=== PATIENT | female | born 1970 | race African-American/Black ===

== ENCOUNTER 2019-04-08 10:02 | Emergency (ER) | payer BC ==
[~2019-04-08] VITALS: Ht 165.1 cm; Wt 63.5 kg
[2019-04-08 10:08] VITALS: BP 114/73
[2019-04-08] MEDS ORDERED: MUPIROCIN22 GM TOPIC (10:11)
--- NOTE | 2019-04-08 10:12 | NUR ---
ED Nurse Note: Patient walked into ED from home c/o swelling on the left side of the face for 1 day. minimal swelling noted. patient reports it's itchy. patient reports hx of eczema. patient is alert awake x4 ambulatory, breathing unlabored and even, speaking in full sentences.
[2019-04-08] MEDS ORDERED: PREDNISONE20 MG ORAL (10:34)
[2019-04-08] MEDS ORDERED: DOXYCYCLINE MO100 MG ORAL (10:34)
[2019-04-08 10:41] VITALS: BP 114/73
--- NOTE | 2019-04-08 10:42 | NUR ---
ER DISCHARGE NOTE: Patient is cleared to be discharged per ERMD DR PERDOMO, pt is aox4, on room air, with stable vital signs. pt was given dc and prescription instructions, pt was able to verbalize understanding, pt id band removed without complications. pt is able to ambulate with steady gait. pt took all belongings.
--- NOTE | 2019-04-08 11:04 | Emergency Room Report ---
History of Present Illness General Chief Complaint: Skin Rash/Abscess Source: Patient Present Illness HPI 49 year Old female presents ED for evaluation of rash to face and body. States symptoms started about a week ago. Denies pain. Appears somewhat swollen on the left cheek. Denies fevers or chills. States it is itchy. States that few weeks ago she went to [facility] and saw dermatology and was told she had eczema. Was prescribed towards any cream and states the symptoms did resolve but did return. Denies any known food or drug allergies. Denies sick contacts or recent travel. No other aggravating relieving factors. Denies any other associated symptoms Allergies: Coded Allergies: No Known Allergies (Unverified , 04/08/19) Patient History Past Medical History: none Past Surgical History: none Pertinent Family History: none Social History: Denies: smoking, alcohol use, drug use Last Menstrual Period: 01/2019 Now: No Immunizations: UTD Reviewed Nursing Documentation: PMH: Agreed; PSxH: Agreed Nursing Documentation-PMH Past Medical History: No Stated History Review of Systems All Other Systems: negative except mentioned in HPI Physical Exam Vital Signs Date Time Temp Pulse Resp B/P (MAP) Pulse Ox O2 Delivery O2 Flow Rate FiO2 04/08/19 10:08 98.2 60 18 114/73 (87) 100 Room Air Sp02 EP Interpretation: reviewed, normal General Appearance: no apparent distress, alert, GCS 15, non-toxic Head: normocephalic Eyes: bilateral eye normal inspection, bilateral eye PERRL ENT: normal ENT inspection Neck: normal inspection Respiratory: normal inspection Cardiovascular #1: normal inspection Gastrointestinal: normal inspection Rectal: deferred Genitourinary: no CVA tenderness Musculoskeletal: normal inspection Neurologic: alert, motor strength/tone normal, oriented x3, sensory intact, responsive, speech normal Psychiatric: normal inspection Skin: rash - eczematous rash to face. chest, abdomen. nonerythematous base. somewhat indurated L cheek. no fluctuance or discharge Lymphatic: normal inspection Medical Decision Making Diagnostic Impression: Primary Impression: Rash and other nonspecific skin eruption ER Course Hospital Course 49-year-old female presents to ED with rash Differential diagnoses include: Cellulitis, dermatitis, insect bite, abscess Clinical course Patient placed on stretcher. After initial history, physical exam reveals a middle aged female in no acute distress. On exam there is a eczematous rash noted to the cheeks bilaterally. Also to the chest arms and abdomen. Nonerythematous base. Appears somewhat indurated on the cheek. Discussed findings with the patient. I agree with assessment of eczema. Symptoms did improve after steroid taper. Will prescribe short course of prednisone. Given that the cheek appears somewhat inflamed we will prescribe antibiotics. I do recommend close follow-up with the dermatology that she saw initially. Patient agrees. Safe for discharge Diagnosis - rash stable and discharged to home with prescription for Doxycycline, Prednisone. Instructed to followup with PMD. Instructed return to ED if symptoms recur or worsen Last Vital Signs Date Time Temp Pulse Resp B/P (MAP) Pulse Ox O2 Delivery O2 Flow Rate FiO2 04/08/19 10:41 98.2 60 18 114/73 100 Room Air Status: improved Disposition: HOME, SELF-CARE Condition: Stable Scripts Prednisone* (PREDNISONE*) 20 Mg Tablet 40 MG ORAL DAILY, #10 TAB Prov: Vito Oakes MD 04/08/19 Doxycycline Monohydrate* (DOXYCYCLINE MONOHYDRATE*) 100 Mg Capsule 100 MG ORAL Q12H, #14 CAP 0 Refills Prov: Vito Oakes MD 04/08/19 Referrals: NOT CHOSEN IPA/,REFERRING (PCP) Patient Instructions: Eczema Additional Instructions: followup with your dietary tech Vito Oakes MD Apr 08, 2019 11:04
== END 2019-04-08 10:41 | disposition home or self-care (01) ==
LOC: EMR 10:40
DX: R21 Rash and other nonspecific skin eruption (principal)
CPT/HCPCS: 99282